=== PATIENT | male | born 1960 | race Caucasian/White ===

== ENCOUNTER 2018-08-01 21:17 | Emergency (ER) | payer OTHER ==
[2018-08-01] MEDS: SODIUM CHLORIDE 0.9% FLUSH 10 ML SOL IV PRN ×2 (21:20→21:34)
[2018-08-01 21:28] VITALS: RESP 20
[2018-08-01] MEDS ORDERED: MORPHINE SULFATE 10 MG/ML SOL IV ONE ×2 (21:28→22:45)
[2018-08-01] MEDS ORDERED: MORPHINE SULFATE 10 MG/ML SOL ONE ×2 (21:30→22:47)
[2018-08-01 21:33] LABS: BASOPHILS % (AUTO) 1 % (0-3); EOSINOPHILS % (AUTO) 1 % (0-9); HEMATOCRIT 41 % (39-53); HEMOGLOBIN 13.6 gm/dl (13.5-17.7); LYMPHOCYTES % (AUTO) 12.4 % (10-50); MEAN CORPUSCULAR HEMOGLOBIN 31.5 pg (27.0-32.0); MEAN CORPUSCULAR HGB CONC 33.5 gm/dl (32.0-36.0); MEAN CORPUSCULAR VOLUME 94 fL (80-100); MONOCYTES % (AUTO) 7.4 % (0-12); NEUTROPHILS % (AUTO) 78.1 % (37-80)
[2018-08-01 21:44] LABS: ALBUMIN 3.7 gm/dl (3.4-5.0); BILIRUBIN,TOTAL 0.4 mg/dl (0.2-1.0); CALCIUM 9.2 mg/dl (8.5-10.1); CARBON DIOXIDE 24.5 mEq/L (21-32); CREATININE 0.99 mg/dl (0.80-1.30); CRP INFLAMMATORY 8.62 mg/dl (0.00-0.33); TOTAL PROTEIN 8.2 gm/dl (6.4-8.2)
[2018-08-01] MEDS ORDERED: SODIUM CHLORIDE 0.9% 1000ML 1,000 ML IV ONE (21:53)
[2018-08-01] MEDS ORDERED: SODIUM CHLORIDE 0.9% 1000ML 1,000 ML IV SCH (22:00)
[2018-08-01 23:06] LABS: APPEARANCE,URINE Clear; BILIRUBIN,URINE NEGATIVE (NEGATIVE); COLOR,URINE Yellow; GLUCOSE, URINE (UA) NEGATIVE (NEGATIVE); KETONES,URINE NEGATIVE (NEGATIVE); LEUKOCYTE ESTERASE ,URINE NEGATIVE (NEGATIVE); NITRATE,URINE NEGATIVE (NEGATIVE); OCCULT BLOOD,URINE NEGATIVE (NEG-TRACE); PH,URINE 6.5; UROBILINOGEN,URINE 0.2 (0.2-1.0 EU)
[2018-08-01 23:11] VITALS: BP 158/85; PULSE 86; TEMP 98; O2SAT 95
[2018-08-01 23:14] LABS: BACTERIA RARE (< 1+); CRYSTALS NEGATIVE (0-3 AVE/HPF); EPITHELIAL CELLS 0-2 (SQUAMOUS); RBC,URINE 0-2 (0-3AV/HPF); WBC,URINE 0-2 (0-5AV/HPF)
[2018-08-01] MEDS ORDERED: FLEET ENEMA PR PRN (23:29)
[2018-08-01 23:31] LABS: AMYLASE 80 IU/L (25-115)
[2018-08-01] MEDS ORDERED: CYCLOBENZAPRINE 10 MG TAB PO ONE (23:35)
[2018-08-01] MEDS ORDERED: CYCLOBENZAPRINE 10 MG TAB ONE (23:36)
[2018-08-02] MEDS ORDERED: CIPROFLOXACIN HCL 500 MG TAB PO SCH (00:30)
[2018-08-02] MEDS ORDERED: PREDNISONE 20 MG TAB PO ONE (00:38)
[2018-08-02] MEDS ORDERED: PREDNISONE 20 MG TAB ONE (00:54)
[2018-08-02] MEDS ORDERED: CIPROFLOXACIN HCL 500 MG TAB PO ONE (00:55)
[2018-08-02] MEDS ORDERED: MORPHINE SULFATE 10 MG/ML SOL ONE (01:01)
[2018-08-02] MEDS ORDERED: MORPHINE SULFATE 10 MG/ML SOL IM ONE (01:09)
== END 2018-08-02 01:15 | disposition home or self-care (01) ==
LOC: ED 21:17
DX: R10.9 Unspecified abdominal pain (principal); E87.1 Hypo-osmolality and hyponatremia; R14.0 Abdominal distension (gaseous); K59.00 Constipation, unspecified; K86.9 Disease of pancreas, unspecified
CPT/HCPCS: 36415; 71046; 74177; 80053; 81001; 82150; 83880; 84295; 85025; 87040; 93005; 96365; 96372; 96374; 99284; 99285; J2270; Q9967; 84153-90; A9270-GY

== ENCOUNTER 2019-04-13 09:19 | Day surgery (SDC) | payer OTHER ==
[~2019-04-13 09:19] MED LIST: PROPOFOL 500 MG/50 ML EMU IV ONE
[2019-04-13 11:53] VITALS: RESP 18
[2019-04-13 12:18] VITALS: BP 131/87; PULSE 74; TEMP 97.4; O2SAT 96
== END 2019-04-13 12:42 | disposition home or self-care (01) | DRG 951 ==
LOC: SURG 09:19
PROVIDERS: ATTEND Surgery
DX: Z12.11 Encounter for screening for malignant neoplasm of colon (principal); K57.32 Diverticulitis of large intestine without perforation or abscess without bleeding; D12.2 Benign neoplasm of ascending colon; D12.3 Benign neoplasm of transverse colon; K63.5 Polyp of colon
CPT/HCPCS: 99001; J2704